=== PATIENT | male | born 1945 | race Caucasian/White ===

== ENCOUNTER 2016-02-21 12:40 | Day surgery (SDC) | payer MEDICARE, OTHER ==
[~2016-02-21] VITALS: Ht 180.3 cm; Wt 94.0 kg
[2016-02-21] VITALS (20 sets, daily range): BP systolic 108–146; BP diastolic 58–87; PULSE 84–98; RESP 16–29; TEMP 98.5; Ht 180.3 cm; Wt 94.0 kg
[~2016-02-21 12:40] MED LIST: ALBU8.5H3 INH; ALLO100T PO; ASPI-535 PO; ASPI-664 PO; BENA5TAB2 PO; BIMA5DRO BOTH EYES; CARV6.25 PO; CHLO25TA13 PO; HYD25 PO; IND50 PO; KENC1 TOP; OMEP20CA16 PO; TIOT18CA IH
[2016-02-21] MEDS ORDERED: CARV25TA79 PO (13:56)
[2016-02-21] MEDS ORDERED: ERGO500014 PO (13:57)
[2016-02-21] MEDS ORDERED: OLOP2.5D5 BOTH EYES (13:58)
[2016-02-21] MEDS ORDERED: TIOT4MIS4 INHALATION (13:58)
--- NOTE | 2016-02-21 13:59 | RADRPT ---
PROCEDURE: XR Chest 1 view. CLINICAL INDICATION: Chest pain TECHNIQUE: AP views of the chest were obtained. COMPARISON: January 12, 2014 FINDINGS: The heart is large. Calcified atherosclerosis is noted in the aorta. Central pulmonary vascular con gestion and interstitial prominence is seen in both lungs. Patchy bilateral mid and lower lung infi ltrates are observed. Small pleural effusions may be present. Osseous structures are osteopenic, b ut appear grossly intact. IMPRESSION: Cardiomegaly with calcified atherosclerosis in the aorta. Central pulmonary vascular congestion and interstitial prominence in both lungs. Patchy bilateral mid and lower lung infiltrates, possibly combined with small pleural effusions. RPTAT: AA .Carlos Santos MD, Date Time Electronically viewed and signed by .Carlos Santos MD, on 02/21/2016 13:59 .P/
[2016-02-21 14:14] LABS: BASOPHILS % 0.3 % (0.0-2.0); EOSINOPHILS # 0.1 10^3/ul (0.0-0.5); EOSINOPHILS % 0.6 % (0.0-7.0); HEMOGLOBIN 15.8 g/dl (14.0-18.0); LYMPHOCYTES # 1.9 10^3/ul (0.8-2.9); LYMPHOCYTES % 14.1 % (15.0-51.0); MEAN CORPUSCULAR HGB CONC 34.3 g/dl (32.0-37.0); MEAN CORPUSCULAR VOLUME 84.6 fl (82.0-101.0); MEAN PLATELET VOLUME 8.9 fl (7.4-10.4); NEUTROPHIL # 10.7 10^3/ul (1.6-7.5); PLATELET COUNT 244 10^3/UL (140-440); RED BLOOD COUNT 5.43 10^6/ul (4.70-6.10); RED CELL DISTRIBUTION WIDTH 14.4 % (11.5-14.5); UNCORRECTED WBC 13.7 10^3/ul (4.8-10.8); WHITE BLOOD COUNT 13.7 10^3/ul (4.8-10.8)
[2016-02-21 14:19] LABS: CHLORIDE 102 mmol/L (97-110); INR 0.96; POTASSIUM 4.8 mmol/L (3.5-5.1); PROTIME 12.8 Sec (12.2-14.2); SODIUM 143 mmol/L (135-144)
[2016-02-21 14:20] LABS: PARTIAL THROMBOPLASTIN TIME 26.5 Sec (25.0-35.0)
[2016-02-21 14:22] LABS: CARBON DIOXIDE 25 mmol/L (21-31)
[2016-02-21 14:23] LABS: BLOOD UREA NITROGEN 18 mg/dl (7-20); CALCIUM 9.6 mg/dl (8.4-10.2); GLUCOSE 100 mg/dl (70-220)
[2016-02-21 14:25] LABS: ANION GAP 21 (8-16)
[2016-02-21 14:27] LABS: CONDITION 1
--- NOTE | 2016-02-21 14:35 | ERA ---
ER Documentation Chief Complaint Date/Time DATE: 02/21/16 TIME: 14:32 Chief Complaint CAME IN VIA INTAKE DUE TO CHEST PAIN FOR 3 DAYS HPI 70-year-old male referred to the emergency department from his die caster's office. History available from I's discussions with the patient and his die caster. Patient was in his usual state of health until the last 3 days at which time he developed a nonspecific central chest discomfort. He reports no palpitations or shortness of breath associated with this chest pain. He saw his doctor and had an abnormal stress test and was referred to the emergency department for evaluation. Upon arrival, patient states she is having no further chest pain. ROS All systems reviewed and are negative except as per history of present illness. Medications Home Meds Reported Medications Tiotropium Br/Olodaterol HCl (Stiolto Respimat Inhal [place]) 4 Gm Mist.inhal, 2 PUFF INHALATION DAILY, #1 INHALER 02/21/16 Olopatadine HCl (Pazeo) 2.5 Ml Drops, 1 DRP BOTH EYES DAILY, BOTTLE 02/21/16 Ergocalciferol* (Drisdol* (Vitamin D2)) 50,000 Unit Capsule, 93149 UNIT PO Q7D, CAP 02/21/16 Carvedilol* (Carvedilol*) 25 Mg Tablet, 25 MG PO BID, #60 TAB 02/21/16 Benazepril Hcl* (Benazepril Hcl*) 5 Mg Tablet, 5 MG PO DAILY, TAB 01/12/14 Albuterol Sulfate* (Proair HFA*) 8.5 Gm Hfa.aer.ad, 2 PUFF INH Q6 Y for WHEEZING AND SOB, INH 01/12/14 Chlorthalidone* (Chlorthalidone*) 25 Mg Tablet, 25 MG PO DAILY, TAB 01/12/14 Omeprazole* (Omeprazole*) 20 Mg Capsule.dr, 20 MG PO DAILY, CAP 01/12/14 Bimatoprost* (Lumigan*) 0.01%-5 Ml Opht Drops, 1 DROP BOTH EYES HS, EA 01/12/14 Hydrochlorothiazide* (Hydrochlorothiazide*) 25 Mg Tab, 25 MG PO DAILY, TAB 01/12/14 Aspirin Ec (Aspir 81) 81 Mg Tablet.dr, 81 MG PO DAILY 01/22/12 Discontinued Reported Medications Tiotropium [place]* (Spiriva*) 18 Mcg Cap.w.dev, 1 INH IH DAILY, EA 01/12/14 Carvedilol* (Coreg*) 6.25 Mg Tablet, 6.25 MG PO BID, TAB 01/12/14 Triamcinolone Acetonide* (Kenalog*) 0.1%-15GM Cr, 1 APPLIC TOP DAILY, EA 01/12/14 Aspirin* (Aspirin* EC) 81 Mg Tablet.dr, 81 MG PO DAILY, TAB 01/12/14 Allopurinol* (Allopurinol*) 100 Mg Tablet, 100 MG PO DAILY, TAB 01/12/14 Indomethacin* (Indocin*) 50 Mg Cap, 50 MG PO BID Y for take with food, CAP 01/12/14 Allergies Allergies: Coded Allergies: No Known Allergies (Verified Allergy, Unknown, 02/21/16) PMhx/Soc History of Surgery: Yes ([facility] AT [facility] APPO[facility] 1 YR AGO.) Anesthesia Reaction: No Hx Neurological Disorder: No Hx Respiratory Disorders: No Hx Cardiac Disorders: Yes (HTN) Hx Psychiatric Problems: No Hx Miscellaneous Medical Probl: No Hx Alcohol Use: Yes Hx Substance Use: No Hx Tobacco Use: No Smoking Status: Never smoker FmHx Noncontributory for chief complaint Physical Exam Vitals Vital Signs Date Time Temp Pulse Resp B/P Pulse Ox O2 Delivery O2 Flow Rate FiO2 02/21/16 12:48 98.5 127 20 128/73 96 Physical Exam GENERAL: The patient is well developed and appropriate for usual state of health in no apparent distress HEENT: Pupils equal, round, and reactive to light. EOMI. There is no scleral icterus. NECK: C-spine is soft and supple, there is no meningismus. There is no cervical lymphadenopathy. LUNGS: Clear to auscultation bilaterally. There are no rales, wheezes or rhonchi. HEART: Regular rate and rhythm, no murmurs, clicks, rubs or gallops. ABDOMEN: Soft, non-tender, non-distended. There are bowel sounds in all four quadrants. No rebound or guarding. EXTREMITIES: There is no peripheral cyanosis or edema. No focal swelling or erythema. NEURO: The patient moves all four extremities with 5/5 strength. Cranial nerves II - XII are intact. Normal gait. Alert and oriented SKIN: There is no apparent rash or petechiae. HEME/LYMPHATIC: There is no evidence of excessive bruising or lymphedema. PSYCHIATRIC: The patient does not appear anxious or depressed. Result Diagram: 02/21/16 1345 02/21/16 1345 Results 24 hrs Laboratory Tests Test 02/21/16 13:34 02/21/16 13:45 Bedside Glucose 97mg/dL Activated Partial Thromboplast Time 26.5Sec Anion Gap 21 Basophils # 0.010^3/ul Basophils % 0.3% Blood Urea Nitrogen 18mg/dl Calcium Level 9.6mg/dl Carbon Dioxide Level 25mmol/L Chloride Level 102mmol/L Creatinine 1.20mg/dl Eosinophils # 0.110^3/ul Eosinophils % 0.6% Glucose Level 100mg/dl Hematocrit 46.0% Hemoglobin 15.8g/dl INR International Normalized Ratio 0.96 Lymphocytes # 1.910^3/ul Lymphocytes % 14.1% Mean Corpuscular Hemoglobin 29.0pg Mean Corpuscular Hemoglobin Concent 34.3g/dl Mean Corpuscular Volume 84.6fl Mean Platelet Volume 8.9fl Monocytes # 1.010^3/ul Monocytes % 7.0% Neutrophils # 10.710^3/ul Neutrophils % 78.0% Nucleated Red Blood Cells # 0.010^3/ul Nucleated Red Blood Cells % 0.0/100WBC Platelet Count 73266^3/UL Potassium Level 4.8mmol/L Prothrombin Time 12.8Sec Prothrombin Time Ratio 1.0 Red Blood Count 5.4310^6/ul Red Cell Distribution Width 14.4% Sodium Level 143mmol/L Troponin I Pending White Blood Count 13.710^3/ul Procedures/MDM Patient was taken to a room, seen and evaluated. Comfort measures were initiated. Diagnostic tests were ordered and reviewed. 3 LEAD RHYTHM STRIP: Sinus tachycardia EK lead EKG reviewed by myself: Sinus tachycardia Left axis deviation Nonspecific ST and T waves without ST elevation Impression: Nonspecific EKG RADIOLOGY: reviewed with the radiologist CONSULTATION: Dr. Huston was notified for admission at Dr. Uribe's request. Based on insurance, I coordinated with both Dr. Huston and Dr. Steen. REEVALUATION: Patient had a brief syncopal episode while in the emergency department. He had no obvious chest pain or palpitations prior to that. Unfortunately, he was not on the sack filler at the time of the syncopal episode. Post the episode, he remained in his normal state of health. MEDICAL DECISION MAKING: Patient presents with chest pain of uncertain etiology. Differential diagnosis considered includes acute myocardial infarction , pulmonary embolism, as well as vascular and pulmonary concerns. I have reviewed the patients clinical risk factors, EKG, lab studies and imaging. At this time, given the patient's abnormal stress test and known risk factors, he appears to be having a true acute coronary syndrome. According to my conversations with his die caster, he will be taken to the [facility] this evening for angiographic study and possible PCI if necessary. Departure Diagnosis: Primary Impression: Chest pain Additional Impression: Syncope Condition: ANGELICA Andrade Feb 21, 2016 14:35
[2016-02-21 14:37] LABS: TROPONIN-I < 0.010 ng/ml (0.00-0.12)
[2016-02-21] MEDS ORDERED: IODIXANOL LOCM 100 ML BTL ONE (15:07)
[2016-02-21] MEDS ORDERED: HEPARIN 1000 UNITS/NS (A-LINE) 1,000 ML ONE (15:07)
[2016-02-21] MEDS ORDERED: HEPARIN 1000 UNITS/ML 10 ML INJ ONE (15:07)
[2016-02-21] MEDS ORDERED: LIDOCAINE 1% (MDV) 20 ML INJ ONE (15:07)
[2016-02-21] MEDS ORDERED: MIDAZOLAM 1 MG/ML 2 ML INJ ONE (15:07)
[2016-02-21] MEDS ORDERED: FENTAnyl 50 MCG/ML VIAL ONE (15:08)
[2016-02-21] MEDS ORDERED: VERAPAMIL 5 MG INJ ONE (15:08)
[2016-02-21] MEDS ORDERED: NITROGLYCERIN (IC) 100 MCG/ML INJ ONE (15:08)
[2016-02-21] MEDS ORDERED: ONDANSETRON 4 MG INJ ONE (15:23)
--- NOTE | 2016-02-21 15:44 | CONS ---
Date/Time of Note Date/Time of Note DATE: 02/21/16 TIME: 15:40 Assessment/Plan Assessment/Plan Additional Assessment/Plan Chest pain Mild nonobstructive coronary artery disease Abnormal stress test Preserved ejection fraction Hypertension Abnormal chest x-ray -Patient status post cardiac catheterization with no significant obstructive disease. Chest x-ray reviewed with possible infiltrate. Would proceed with CT chest to better evaluate. Would continue IV fluids and aspirin therapy. Consultation Date/Type/Reason Admit Date/Time Type of Consultation: cv Reason for Consultation Chest pain and abnormal stress test Hx of Present Illness This is a 70-year-old male with past medical history of hypertension who presents with 3-4 days of worsening chest pain. Pain is pressure-like, occasionally sharp on the left side of chest. Sometimes with activity sometimes with rest as well as. 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 He did have a recent nuclear stress test with lateral ischemia. Given the above symptoms and abnormal stress test, patient sent to the emergency room for further evaluation and care. He does complain of intermittent shortness of breath but denies cough. He does complain of possible chills. He does have occasional nausea. 12 point review of systems was performed with all pertinent positives and negatives mentioned above and all else is negative Past Medical History Medical History: hypertension Past Surgical History Cardiac catheterization Family History Significant Family History: no pertinent family hx Social History Alcohol Use: rarely Smoking Status: Never smoker Exam/Review of Systems Vital Signs Vitals Vital Signs Date Time Temp Pulse Resp B/P Pulse Ox O2 Delivery O2 Flow Rate FiO2 02/21/16 14:36 98.5 99 26 124/82 100 Room Air Exam No apparent distress Constitutional: alert, oriented, well developed Head: normocephalic Neck: supple Respiratory: other (course breath sounds bilaterally, no wheezing) Cardiovascular: other (S1-S2 heard), regular rate and rhythm Gastrointestinal: bowel sounds, non-tender, other (no guarding), soft Extremities: edema (trace) Results Result Diagram: 02/21/16 1345 02/21/16 1345 Results 24 hrs Laboratory Tests Test 02/21/16 13:34 02/21/16 13:45 Bedside Glucose 97 Activated Partial Thromboplast Time 26.5 Anion Gap 21 H Basophils # 0.0 Basophils % 0.3 Blood Urea Nitrogen 18 Calcium Level 9.6 Carbon Dioxide Level 25 Chloride Level 102 Creatinine 1.20 Eosinophils # 0.1 Eosinophils % 0.6 Glucose Level 100 Hematocrit 46.0 Hemoglobin 15.8 INR International Normalized Ratio 0.96 Lymphocytes # 1.9 Lymphocytes % 14.1 L Mean Corpuscular Hemoglobin 29.0 Mean Corpuscular Hemoglobin Concent 34.3 Mean Corpuscular Volume 84.6 Mean Platelet Volume 8.9 Monocytes # 1.0 H Monocytes % 7.0 Neutrophils # 10.7 H Neutrophils % 78.0 H Nucleated Red Blood Cells # 0.0 Nucleated Red Blood Cells % 0.0 Platelet Count 244 Potassium Level 4.8 Prothrombin Time 12.8 Prothrombin Time Ratio 1.0 Red Blood Count 5.43 Red Cell Distribution Width 14.4 Sodium Level 143 Troponin I < 0.010 White Blood Count 13.7 #H Procedures Procedures ECG with sinus tachycardia at 109 bpm, left anterior fascicular block, QRS 98 ms , no significant ischemic STT wave abnormalities Ney Uribe DO Feb 21, 2016 15:43
[2016-02-21] MEDS ORDERED: SOD CHLORIDE 0.9% 1,000 ML IV SCH (16:14)
[2016-02-21] MEDS ORDERED: ACETAMINOPHEN 325 MG TAB PO PRN (16:30)
--- NOTE | 2016-02-21 16:53 | RADRPT ---
PROCEDURE: CT Chest without contrast. CLINICAL INDICATION: Chest pain. Abnormal chest x-ray. Pulmonary fibrosis. TECHNIQUE: CT scan of the chest without contrast was performed on a multidetector high-resolution CT scanner. Coronal and sagittal reformatted images were obtained from the axial source images. The total exam CTDI equals 14.76 mGy and the total exam DLP equals 575.93 mGy-cm. One or more of the following dose reduction techniques were used: - Automated exposure control. - Adjustment of the mA and/or kV according to patient size. - Use of iterative reconstruction technique. COMPARISON: Chest x-ray dated 02/21/2016 FINDINGS: Advanced severe pulmonary fibrosis is seen scattered throughout the lungs. Severe interstitial fibr osis with traction bronchiectasis and bronchiolectasis is seen, with honeycombing pattern at the per iphery of the lungs and lung bases. No pleural effusion, pulmonary edema, mass lesion, or pneumotho rax is seen. The central tracheobronchial tree is clear. The mediastinum is unremarkable without evidence for mass or lymphadenopathy. The vascular structur es of the mediastinum are normal in course and caliber. Aortic vascular calcifications and coronary artery calcifications are present. The heart size is mildly enlarged without evidence for pericard ial thickening or effusion. The axillary regions, subpectoral regions, and supraclavicular regions are all unremarkable. The atkinson rrounding chest wall is unremarkable. Imaging obtained through the upper abdomen reveals no acute a bnormality. The surrounding osseous structures are remarkable for degenerative spondylosis of the s pine. No osteolytic or osteoblastic lesion is detected. Subtle scoliotic curvature of the thoracic spine is identified. IMPRESSION: 1. Advanced and severe end-stage pulmonary fibrosis scattered throughout the lungs. 2. No mass, lymphadenopathy, or focal acute infiltrate is identified. 3. Vascular calcifications consistent with atherosclerosis. 4. Mild cardiomegaly without pericardial thickening or effusion. 5. Scoliosis and degenerative spondylosis of the spine. RPTAT: HMJB .Malachi Mast MD, Date Time Electronically viewed and signed by .Malachi Mast MD, on 02/21/2016 16:53 .B/
[2016-02-21] MEDS ORDERED: LEVALBUTEROL (NEB) 0.63 MG/3 ML AMP HHN PRN (18:30)
--- NOTE | 2016-02-21 18:47 | CARRPT ---
DATE OF PROCEDURE: 02/21/2016 PROCEDURES: 1. Left heart catheterization. 2. Right and left coronary angiogram. 3. Interpretation and supervision of right and left coronary angiogram. 4. Left ventricular pressure measurements. 5. Left radial artery approach. PATIENT HISTORY: This is a 70-year-old male who presents with worsening chest pain over the past 3 to 4 days with abnormal stress test. FINDINGS: HEMODYNAMICS: 1. LV pressure was 111/-1 with an EDP of 8. 2. Aortic pressure 109/74. CORONARY ANATOMY 1. Left main is a large caliber vessel with no significant disease. 2. Circumflex is a large caliber vessel. There is a mid 10% stenosis, a distal 10% stenosis. 3. LAD is a large caliber vessel with an ostial 20% stenosis and distal 10% stenosis. 4. RCA is a large caliber vessel and is dominant. There is a distal 10% stenosis. DESCRIPTION OF PROCEDURE: The patient was brought to the ammunition assembly i laborer after informed consent. The lan ent was prepped and draped as per protocol. Left radial access was obtained and a 5/6-Niuean sheath was placed in the left radial artery. A 5-Niuean JL3.5 diagnostic catheter was used to engage the left main and angiogram was performed. We next used a 5-Niuean JR4 catheter to enter the left ventr icle. Pressure measurements were obtained as well as pullback. Engaging the RCA, angiogram was per formed. There was no evidence of any significant obstructive epicardial coronary artery disease. A ll catheters and wires were removed. The patient was transferred to recovery in stable condition. DIAGNOSIS: Mild nonobstructive epicardial coronary artery disease. COMPLICATIONS: None. ESTIMATED BLOOD LOSS: Minimal. CONTRAST USED: 20 mL. RECOMMENDATIONS: Evaluate other causes of the patient's symptoms. Medical management. Dictated By: GARRY STOLL/MARTHA Conf#: [id number] DID#: [id number]
--- NOTE | 2016-02-21 19:05 | HP ---
DATE OF ADMISSION: 02/21/2016 HISTORY OF PRESENT ILLNESS: The patient is a 70-year-old Yi gentleman with past medical histo ry positive for hypertension, kidney stones, and history of being prediabetic. The patient presente d with 3 to 4 days of worsening chest pain that feels like a pressure-like on the left side with inc rease in intensity over the last. The patient was seen in banjo repairer's office. The patient has a nuclear stress test with lateral ischemia and patient was sent to the emergency room for further ev aluation and care. In the emergency room, the patient's troponin less than 0.01. The patient was t aken to cardiac cath and underwent cardiac catheterization by Dr. Uribe with notion of nonobstructi ve coronary artery disease. The patient's chest x-ray revealed possible infiltrates. The patient w ill be admitted for further management to intensive care unit. PAST MEDICAL HISTORY: Positive for hypertension, being prediabetic. PAST SURGICAL HISTORY: The patient has a kidney stone removal, appendectomy, and a history of angio gram in the past. FAMILY HISTORY: Negative for history of cancer or diabetes. The patient's mother lived until 96 ye ars old. The patient's sister has heart disease. SOCIAL HISTORY: The patient is retired, lives with family. The patient denies a history of smoking , uses alcohol rarely. Denies any illicit drug use. ALLERGIES: NO KNOWN ALLERGIES. MEDICATIONS ON ADMISSION: 1. Hydrochlorothiazide. 2. Aspirin. 3. Benazepril. 4. Coreg. REVIEW OF SYSTEMS: A 12-point review of systems is negative unless what mentioned in the HPI. The patient denies any fever, chills. Denies nausea, vomiting, constipation. PHYSICAL EXAMINATION: GENERAL: A well-developed, well-nourished gentleman, awake, alert. VITAL SIGNS: Temperature is 97.9, pulse of 92, blood pressure is 132/72, respiratory rate 19, oxyge n saturation 97% on room air. HEENT: Head is atraumatic, normocephalic. Pupils equal, round, reactive to light and accommodation . Oral mucosa is pink and moist. NECK: Supple. No cervical lymphadenopathy, no thyromegaly. CHEST: Lungs are clear bilaterally. There is no rhonchi, wheezes, rales noted. CARDIOVASCULAR: Normal S1, S2. No murmurs, gallops, clicks, rubs noted. ABDOMEN: Round, soft, nondistended, nontender. Bowel sounds present. There is no guarding, no angel ound tenderness. EXTREMITIES: There is no edema, clubbing, cyanosis. Pulses equal bilaterally 2+. SKIN: There is no rash, petechiae noted. NEUROLOGICAL: The patient is awake, alert, and oriented x4. No focal deficits noted. MUSCULOSKELETAL: Motor strength 5/5 in all extremities. GENITOURINARY: The patient has a left radial A-line. LABORATORY DATA: On admission, CBC: White blood cells 13.7, hemoglobin 15.8, hematocrit 46.0, plat elets 244. Chemistry: Sodium is 143, potassium 4.8, chloride 102, carbon dioxide 25, anion gap 21, BUN is 18, creatinine 1.20, glucose 100, calcium is 9.6. Troponin less than 0.01. IMAGING: Chest CT with: 1. Advanced and severe end-stage pulmonary fibrosis scattered throughout the lungs. 2. No mass, lymphadenopathy, or focal acute infiltrate is identified. 3. Vascular calcifications consistent with atherosclerosis. 4. Mild cardiomegaly without pericardial thickening or effusion. 5. Scoliosis and degenerative spondylosis of the spine. ASSESSMENT AND PLAN: 1. Advanced severe end-stage pulmonary fibrosis. Will ask Dr. Faria to see patient in pulmonolog y consultation. 2. Right chest pain with recent nuclear test with lateral ischemia, status post cardiac catheteriza tion with notion of nonobstructive coronary artery disease by Dr. Uribe. Continue to follow up car diology consultation. Continue patient on aspirin. 3. Hypertension. Monitor blood pressure. Continue Coreg, hydrochlorothiazide, and benazepril. 4. Will start patient on oxygen supplementation and bronchodilators. Further recommendations based on clinical course. Plan of care discussed with Dr. Rogel. Dictated By: ELIN MALDONADO CLEANING STAFF SUPERVISOR for VALENTINA ROGEL MD SR/NTS Conf#: [id number] DID#: [id number]
[2016-02-22] MEDS ORDERED: ACETAMINOPHEN 325 MG TAB PO PRN (09:00)
[2016-02-22] MEDS ORDERED: ASPIRIN 81 MG TAB PO SCH (09:00)
[2016-02-22] MEDS ORDERED: morphine 10 MG INJ IM PRN (09:00)
== END 2016-02-21 20:38 | disposition home or self-care (01) ==
LOC: E/R 12:40 → CCL 15:05 → SDS 15:05 → CCL 20:38
PROVIDERS: ATTEND Internal Medicine
DX: I25.10 Atherosclerotic heart disease of native coronary artery without angina pectoris (principal); R94.39 Abnormal result of other cardiovascular function study
CPT/HCPCS: 36415; 71010; 71250; 80048; 82962; 84484; 85025; 85610; 85730; 93005; 93458; 99285; C1769; C1887; J1644; J2250; J2405; J3010; Q9967

== ENCOUNTER 2017-05-14 16:16 | Emergency (ER) | END 2017-05-14 17:17 | disposition left against medical advice (07) ==